=== PATIENT | male | born 1980 | race Caucasian/White ===

== ENCOUNTER 2016-06-07 11:29 | Emergency (ER) | payer OTHER, SELFPAY ==
[2016-06-07] MEDS ORDERED: Amoxicillin/Potassium Clav 875 MG TAB ONE (12:26)
[2016-06-07] MEDS ORDERED: Ibuprofen 200 MG TAB ONE (12:26)
== END 2016-06-07 12:34 | disposition home or self-care (01) ==
LOC: NAV ERS 11:29
DX: K04.7 Periapical abscess without sinus (principal); F17.210 Nicotine dependence, cigarettes, uncomplicated
CPT/HCPCS: 99283

== ENCOUNTER 2021-05-17 03:48 | Emergency (ER) | payer SELFPAY ==
[2021-05-17] MEDS ORDERED: methylPREDNISolone Acetate 40 mg/ml Vial ONE (04:41)
[2021-05-17 23:03] LABS: SARS-CoV-2 PCR by NAA Not Detected (NotDetected)
== END 2021-05-17 05:00 | disposition home or self-care (01) ==
LOC: NAV ERS 03:48
DX: J44.1 Chronic obstructive pulmonary disease with (acute) exacerbation (principal); J04.0 Acute laryngitis; Z20.822 Contact with and (suspected) exposure to COVID-19; G40.909 Epilepsy, unspecified, not intractable, without status epilepticus; F17.210 Nicotine dependence, cigarettes, uncomplicated; Z79.899 Other long term (current) drug therapy
CPT/HCPCS: 87081; 87430; 96372; J2920; J7620; U0003; U0005

== ENCOUNTER 2023-04-15 23:08 | Emergency (ER) | payer BC, SELFPAY ==
[2023-04-15 23:57] LABS: #Basophils 0.2 thou/uL (0.0-0.2); #Eosinphils 0.3 thou/uL (0.0-0.7); #Lymphocytes 3.3 thou/uL (1.20-3.40); #Neutrophils 6.2 thou/uL (1.40-6.50); %Basophils 1.4 % (0.0-1.0); %Eosinophils 2.7 % (0.0-10.0); %Lymphocytes 29.8 % (21.0-51.0); %Monocytes 9.2 % (0.0-10.0); Hematocrit 48.4 % (42.0-52.0); Hemoglobin 16.2 g/dL (14.0-18.0); Mean Corpuscular HGB CONC 33.5 g/dL (32.0-36.0); Mean Corpuscular Volume 98.4 fl (78.0-98.0); Mean Platelet Volume 7.4 fL (7.4-10.4); Platelet Count 318 10x3/uL (130-400); RBC Distribution Width 10.7 % (11.5-14.5); Red Blood Cell (RBC) Count 4.92 mill/uL (4.70-6.10); White Blood Cell (WBC) Count 10.9 10x3/uL (4.8-10.8)
[2023-04-16 00:13] LABS: Acetaminophen Less than 10 mcg/mL (10.0-30.0); Alcohol 275.9 mg/dL (Less than 10); Lipase 90 U/L (8-78); Salicylate Less than 8.0 mg/dL (15.0-30.0)
[2023-04-16 00:17] LABS: ALT (SGPT) 22 U/L (8-55); AST (SGOT) 29 U/L (5-34); Albumin 4.3 g/dL (3.5-5.0); Alkaline Phosphatase 89 U/L (40-110); Anion Gap 15 mmol/L (10-20); BUN (Urea Nitrogen) 8 mg/dL (8.9-20.6); Bilirubin, Total 0.3 mg/dL (0.2-1.2); Calc. Creatinine Clearance 0 mL/min (70-130); Calcium 9.5 mg/dL (7.8-10.44); Carbon Dioxide 24 mmol/L (22-29); Chloride 103 mmol/L (98-107); Estimated GFR 116; Glucose 85 mg/dL (70-105); Potassium 4.1 mmol/L (3.5-5.1); Protein, Total 7.3 g/dL (6.0-8.3); Sodium 138 mmol/L (136-145)
[2023-04-16] MEDS ORDERED: Thiamine HCl 200 MG/2 ML VIAL ONE (00:56)
[2023-04-16] MEDS ORDERED: Folic Acid 5 MG/ML MDV ONE (00:56)
[2023-04-16] MEDS ORDERED: Multivit, Adult Inj 10 ML VIAL ONE (00:57)
[2023-04-16] MEDS ORDERED: Sodium Chloride 0.9% 1,000 ML ONE (00:57)
[2023-04-16] MEDS ORDERED: Dextrose 5 %-0.45 % NaCl 1,000 ML ONE (00:57)
[2023-04-16 09:07] LABS: Amphetamine Not Detected (NotDetected); Barbiturates Screen Not Detected (NotDetected); Benzodiazepine Screen Not Detected (NotDetected); Cocaine Metabolite Screen Not Detected (NotDetected); Methadone Not Detected (NotDetected); Methamphetamine Not Detected (NotDetected); Opiate Screen Not Detected (NotDetected); Oxycodone Screen Not Detected (NotDetected); Phencyclidine (PCP) Not Detected (NotDetected); THC/Cannabinoid Screen Not Detected (NotDetected); Tricyclic Screen Not Detected (NotDetected)
== END 2023-04-16 18:00 | disposition short-term general hospital (02) ==
LOC: NAV ERS 23:08
DX: F10.20 Alcohol dependence, uncomplicated (principal); Y90.4 Blood alcohol level of 80-99 mg/100 ml; F17.210 Nicotine dependence, cigarettes, uncomplicated
CPT/HCPCS: 36415; 80053; 80306; 80307; 83690; 85025; 93005; 96365; 96366; J3411; J7042; J7050